=== PATIENT | male | born 1980 | race Caucasian/White ===

== ENCOUNTER 2016-04-06 20:26 | Emergency (ER) | payer MEDICAID ==
[~2016-04-06] VITALS: Ht 167.6 cm; Wt 86.2 kg
[~2016-04-06 20:26] MED LIST: ESCITALOPRAM20 MG PO; FLEXERIL10 MG PO; GABAPENTIN800 MG PO; LORTAB 5/500 501 TAB PO; MEDROL 4MG. DOSE4 MG PO; MELOXICAM7.5 MG PO; NOMEDS *; NORCO 325 MG-51 TAB PO; TEGRETOL 200MG200 MG PO; VICODIN 5/500 T1 TAB PO
[2016-04-06 20:30] VITALS: BP 133/95
== END 2016-04-06 21:30 ==
LOC: UTC 20:26 → ER 20:26 → UTC 20:48
DX: Z53.29 Procedure and treatment not carried out because of patient's decision for other reasons (principal)